=== PATIENT | female | born 1955 ===

== ENCOUNTER 2018-01-14 09:05 | Emergency (ER) | payer OTHER ==
[2018-01-14 09:23] VITALS: BP 125/80; PULSE 89; RESP 20; TEMP 97.8; O2SAT 97
--- NOTE | 2018-01-14 09:53 | C.PDOC ---
History Of Present Illness 62-year-old female, comes in for evaluation of left sided neck pain radiating to left upper shoulder that has gradually developed over the past two weeks. Pain is localized and worse with head rotation and left shoulder movement. Patient also reports neck nodules "for a long time" denies any associated discomfort with it. Denies any known direct trauma or injury, chest pain, sob, or any other associated symptoms. No other complaints at this time. Time Seen by Provider: 01/14/18 09:25 Chief Complaint (Nursing): Upper Extremity Problem/Injury History Per: Patient History/Exam Limitations: no limitations Onset/Duration Of Symptoms: Days Current Symptoms Are (Timing): Still Present Past Medical History Reviewed: Historical Data, Nursing Documentation, Vital Signs Vital Signs: Last Vital Signs Temp 97.8 F 01/14/18 09:18 Pulse 89 01/14/18 09:18 Resp 20 01/14/18 09:18 BP 125/80 01/14/18 09:18 Pulse Ox 97 01/14/18 09:59 Family History: States: No Known Family Hx - Social History Hx Alcohol Use: Yes Hx Substance Use: No - Immunization History Hx Tetanus Toxoid Vaccination: No Hx Influenza Vaccination: No Hx Pneumococcal Vaccination: No Review Of Systems Constitutional: Negative for: Fever Musculoskeletal: Positive for: Shoulder Pain (left). Negative for: Back Pain Skin: Negative for: Rash Neurological: Negative for: Weakness, Numbness, Headache, Dizziness Physical Exam - Physical Exam Appears: Well, No Acute Distress Skin: Normal Color, Warm, Dry, No Rash Head: Normacephalic Eye(s): bilateral: PERRL Nose: No Flaring, No Discharge Throat: No Erythema, No Drooling Neck: Trachea Midline, No Midline Cervical Tenderness, Paracervical Tenderness, No Step Off Deformity, Supple, Other (Left lateral neck tenderness over trap muscle extend down to superior aspect Left shoulder with mod muscle spasm. NO midline tenderness, no skin changes.) Cardiovascular: Rhythm Regular, No Murmur, No JVD Respiratory: No Decreased Breath Sounds, No Accessory Muscle Use, No Stridor, No Wheezing Back: No Vertebral Tenderness, No Paraspinal Tenderness Extremity: Normal ROM, No Deformity, No Swelling Neurological/Psych: Oriented x3, Normal Speech, Normal Motor, Normal Sensation, Normal Reflexes ED Course And Treatment ECG: Interpreted By Me, Viewed By Me ECG Rhythm: Sinus Rhythm Interpretation Of ECG: SR@74/min, NAD, no acute T wave or ST-T changes. O2 Sat by Pulse Oximetry: 97 (RA) Pulse Ox Interpretation: Normal Progress Note: On re-eval, pt is afebrile, hemodynamicaly stable. Non-toxic. PulseOx 97% RA. Head: AT/NC. Neck: mild ledr sided lateral tendernesws ith mod muscle spasm, no skin changes, no midline tenderness. SUpple, (-)JVD, (-) carotid bruits B/L. ENT: no acute findings. CVS: (+)S1S2, reg. Lungs: CTA B/L , BS equal B/L. Neurologicaly intact. Pt has clinical findings c/w left sided neck strain with mod muscle spasm. Pt advised on course of ds. ref. to f/u with PMD in 1-2 days for re-eval. return to ED if any worsening or new changes. Disposition Counseled Patient/Family Regarding: Diagnosis, Need For Followup, Rx Given - Disposition Referrals: [facility] [Outside] Disposition: HOME/ ROUTINE Disposition Time: 09:52 Condition: STABLE Additional Instructions: Try to change daily activity avoid neck strain take pain medication as prescribed Follow up with PMD in 2-3 days for re-evaluation. return to ED if any worsening or new changes. Prescriptions: Ibuprofen [Motrin Tab] 600 mg PO Q6 #20 tab Methocarbamol [Robaxin] 500 mg PO TID #14 tab traMADol [Ultram] 50 mg PO TID #7 tab Instructions: Cervical Muscle Strain Forms: [facility] (Monegasque) - Clinical Impression Clinical Impression: Cervical strain - Scribe Statement The provider has reviewed the documentation as recorded by the Scribe (Alessandro Marley) All medical record entries made by the Scribe were at my direction and personally dictated by me. I have reviewed the chart and agree that the record accurately reflects my personal performance of the history, physical exam, medical decision making, and the department course for this patient. I have also personally directed, reviewed, and agree with the discharge instructions and disposition.
== END 2018-01-14 10:06 | disposition home or self-care (01) ==
LOC: C.ER 09:05
DX: S16.1XXA Strain of muscle, fascia and tendon at neck level, initial encounter (principal); X58.XXXA Exposure to other specified factors, initial encounter

== ENCOUNTER 2018-04-22 14:36 | Emergency (ER) | payer SELFPAY ==
[2018-04-22 14:39] VITALS: O2SAT 97
[2018-04-22 14:53] VITALS: BMI 24.7
[2018-04-22] MEDS ORDERED: Tdap Vaccine 0.5 ml Vial (10-64 yrs) IM ONE ×2 (15:13→15:18)
--- NOTE | 2018-04-22 15:17 | C.PDOC ---
History Of Present Illness Pt states she tripped and fell while walking on a sidewalk. She tried to break her fall with her arms, but hit her chin on the ground. - HPI Time Seen by Provider: 04/22/18 14:56 Chief Complaint (Nursing): Trauma History Per: Patient, EMS Injury Occurred (Timing): Just Before Arrival Location Of Injury: Left: Forearm, Anterior: Face (Chin) Severity: Moderate Associated Symptoms: Dazed Additional History Per: Prior Records - Fall Fall:Prior To Injury: Tripped Past Medical History Reviewed: Historical Data, Nursing Documentation, Vital Signs Vital Signs: Last Vital Signs Temp 99.2 F 04/22/18 14:38 Pulse 92 H 04/22/18 14:38 Resp 18 04/22/18 14:38 BP 115/77 04/22/18 14:38 Pulse Ox 97 04/22/18 15:16 - Medical History PMH: No Chronic Diseases Family History: States: Unknown Family Hx - Social History Hx Tobacco Use: Yes Hx Alcohol Use: Yes Hx Substance Use: No - Immunization History Hx Tetanus Toxoid Vaccination: No Hx Influenza Vaccination: No Hx Pneumococcal Vaccination: No Review Of Systems Except As Marked, All Systems Reviewed And Found Negative. Constitutional: Negative for: Fever, Weakness Cardiovascular: Negative for: Chest Pain Respiratory: Negative for: Shortness of Breath Gastrointestinal: Negative for: Vomiting, Abdominal Pain Musculoskeletal: Negative for: Neck Pain, Back Pain Neurological: Positive for: Headache. Negative for: Weakness, Numbness, Seizures, Altered Mental Status Physical Exam - Physical Exam Appears: Non-toxic, No Acute Distress Skin: Normal Color, Warm, Dry Head: Swelling (chin, with tenderness), Abrasion (on chin. pt also has small deep abrasion/puncture wound on bottom of chin) Eye(s): bilateral: PERRL, EOMI Oral Mucosa: Moist, No Drooling, No Trismus Tongue: Normal Appearing Lips: Normal Appearing Teeth: No Loose, No Avulsed Neck: Normal ROM, No Midline Cervical Tenderness, No Step Off Deformity, Supple Chest: Symmetrical, No Deformity, No Tenderness Cardiovascular: Rhythm Regular Respiratory: Normal Breath Sounds, No Accessory Muscle Use Gastrointestinal/Abdominal: Soft, No Tenderness Extremity: Normal ROM, Tenderness (nonspecific left forearm), Capillary Refill ( wnl), No Deformity, No Swelling Pulses: Left Radial: Normal Neurological/Psych: Oriented x3, Normal Motor, Normal Sensation ED Course And Treatment O2 Sat by Pulse Oximetry: 97 Pulse Ox Interpretation: Normal - Radiology Nexus Criteria: Negative - Other Rad Left forearm x-rays X-Ray: Viewed By Me, Read By Radiologist Interpretation: IMPRESSION: No acute fracture or dislocation. - CT Scan/US CT head Other Rad Studies (CT/US): Read By Radiologist, Radiology Report Reviewed CT/US Interpretation: IMPRESSION: No intracranial hemorrhage or mass effect. Please note the same-day CT maxillofacial study. No osseous fractures there noted. Soft tissue changes were found bordering the left mandible CT Facial Other Rad Studies (CT/US): Read By Radiologist, Radiology Report Reviewed CT/US Interpretation: IMPRESSION: No facial bone fracture. Tiny gas bordering the left chinmandible compatible with laceration here mild associated soft tissue swelling. No bony fracture here or elsewhere apparent. Other findings - as above. Progress Note: Velcro forearm splint was placed on left side. Wounds were cleaned and antibiotic ointment applied. Reassessment Condition: Improved Disposition Counseled Patient/Family Regarding: Studies Performed, Diagnosis, Need For Followup - Disposition Referrals: [facility] [Outside] Disposition: HOME/ ROUTINE Disposition Time: 17:12 Condition: IMPROVED Additional Instructions: Keep your left forearm in splint provided until fully healed. Follow up in the clinic. Return to the ER if you develop redness, swelling, pus drainage, weakness, numbness, vomiting, worsening of symptoms or if you have any other concerns. Instructions: Skin Abrasions (DC), Wrist Sprain (DC) - Clinical Impression Clinical Impression: Fall from slip, trip, or stumble, Abrasion of chin, Sprain of left forearm
--- NOTE | 2018-04-22 16:13 | RAD ---
Date of service: 04/22/2018 PROCEDURE: Radiographs of the Left Forearm HISTORY: Pain s/p fall today COMPARISON: None available. TECHNIQUE: Frontal and lateral views obtained. FINDINGS: BONES: Bone alignment and mineralization are normal. There is no acute displaced fracture or bone destruction. JOINT SPACES: Unremarkable. OTHER FINDINGS: None. IMPRESSION: No acute fracture or dislocation.
--- NOTE | 2018-04-22 16:59 | CT ---
Date of service: 04/22/2018 PROCEDURE: CT MAXILLOFACIAL BONES WITHOUT CONTRAST HISTORY: Chin tenderness/swelling, right jaw pain s/p fall COMPARISON: None TECHNIQUE: Contiguous axial CT images of the maxillofacial bones were obtained. Coronal and sagittal reformats were generated. Radiation dose: Total exam DLP = 774 mGy-cm. This CT exam was performed using one or more of the following dose reduction techniques: Automated exposure control, adjustment of the mA and/or kV according to patient size, and/or use of iterative reconstruction technique. FINDINGS: NASAL BONES: No fracture here. ORBITS: Unremarkable. PARANASAL SINUSES/ MASTOIDS: Mild mucosal thickening right ethmoidal air cells. Probable retention cyst right lateral sphenoid sinus extension. Nasal septal spurring MAXILLA: Unremarkable. MANDIBLE/ TEMPOROMANDIBULAR JOINTS: Unremarkable. SKULL BASE: Unremarkable. TEMPORAL BONES: Middle ears and mastoid grossly unremarkable. OTHER FINDINGS: Soft tissue trace a compatible with laceration to left chin area IMPRESSION: No facial bone fracture. Tiny gas bordering the left chinmandible compatible with laceration here mild associated soft tissue swelling. No bony fracture here or elsewhere apparent Other findings -as above.
--- NOTE | 2018-04-22 17:00 | CT ---
Date of service: 04/22/2018 PROCEDURE: CT HEAD WITHOUT CONTRAST. HISTORY: Head injury s/p fall today COMPARISON: None available. TECHNIQUE: Axial computed tomography images were obtained through the head/brain without intravenous contrast. Radiation dose: Total exam DLP = 813 mGy-cm. This CT exam was performed using one or more of the following dose reduction techniques: Automated exposure control, adjustment of the mA and/or kV according to patient size, and/or use of iterative reconstruction technique. FINDINGS: HEMORRHAGE: No intracranial hemorrhage. BRAIN: No mass effect or edema. No significant appear atrophy or chronic microvascular ischemic changes. VENTRICLES: Unremarkable. No hydrocephalus. CALVARIUM: Unremarkable. PARANASAL SINUSES: Unremarkable as visualized. No significant inflammatory changes. MASTOID AIR CELLS: Unremarkable as visualized. No inflammatory changes. OTHER FINDINGS: None. IMPRESSION: No intracranial hemorrhage or mass effect. Please note the same-day CT maxillofacial study. No osseous fractures there noted. Soft tissue changes were found bordering the left mandible
[2018-04-22] MEDS ORDERED: Bacitracin 500 Units/gm Oint Foilpak UD ONE (17:04)
[2018-04-22 17:11] VITALS: BP 133/78; PULSE 68; RESP 16; TEMP 98.1
== END 2018-04-22 17:20 | disposition home or self-care (01) ==
LOC: C.ER 14:36
DX: S00.81XA Abrasion of other part of head, initial encounter (principal); T14.8XXA Other injury of unspecified body region, initial encounter; W01.0XXA Fall on same level from slipping, tripping and stumbling without subsequent striking against object, initial encounter; Y93.01 Activity, walking, marching and hiking; Y92.480 Sidewalk as the place of occurrence of the external cause